=== PATIENT | female | born 1975 | race Hispanic/Latino ===

== ENCOUNTER 2024-11-22 09:04 | Emergency (ER) | payer OTHER ==
[~2024-11-22] VITALS: Ht 157.5 cm; Wt 88.5 kg
[2024-11-22] MEDS ORDERED: SODIUM CHLORIDE 0.9% 1000ML 1,000 ML IV SCH (09:15)
[2024-11-22 09:50] LABS: BASOPHILS % 0.4 % (0.0-1.0); EOSINOPHILS % 0.1 % (0.0-6.0); HEMATOCRIT 37.7 % (34.2-44.1); HEMOGLOBIN 12.5 g/dL (12.0-16.0); LYMPHOCYTES # (AUTO) 1.7 (1.0-3.2); LYMPHOCYTES % 18.8 % (18.0-39.1); MEAN CORPUSCULAR HGB CONC 33.2 g/dL (31-35); MEAN CORPUSCULAR VOLUME 87.5 fL (81-99); MONOCYTES # (AUTO) 0.4 (0.2-0.8); MONOCYTES % 4.1 % (4.4-11.3); NEUTROPHILS # (AUTO) 6.9 (2.1-6.9); PLATELET COUNT 348 x10e3/uL (140-360); RED BLOOD COUNT 4.31 x10e6/uL (3.6-5.1); RED CELL DISTRIBUTION WIDTH 12.5 % (11.7-14.4); WHITE BLOOD COUNT 9.08 x10e3/uL (4.8-10.8)
[2024-11-22 10:15] LABS: ALBUMIN 4.1 g/dL (3.5-5.0); ALBUMIN/GLOBULIN RATIO 1.1 (0.8-2.0); ANION GAP 13.6 mmol/L (8-16); BILIRUBIN,TOTAL 0.2 mg/dL (0.2-1.2); CALCIUM 10.1 mg/dL (8.4-10.2); CREATININE, SERUM 0.85 mg/dL (0.57-1.11); POTASSIUM 3.6 mmol/L (3.5-5.1); TOTAL PROTEIN 7.9 g/dL (6.5-8.1)
[2024-11-22] MEDS: DICYCLOMINE HCL 20 MG/2 ML VIAL IM ONE (10:23)
[2024-11-22] MEDS: ONDANSETRON HCL INJ 2MG/ML 2ML 2 MG/ML VIAL IV STA (10:23)
[2024-11-22] MEDS ORDERED: CARAFATE1 GM PO (11:07)
[2024-11-22] MEDS: MAGNESIUM/ALUMINUM/SIMETHICONE 30 ML UDC PO ONE (11:15)
[2024-11-22] MEDS: BELLADONNA ALK/PHENOBARBITAL 5 ML UDC PO STA (11:15)
[2024-11-22] MEDS: LIDOCAINE VISC 2% SOLN 15 ML UDC PO ONE (11:15)
[2024-11-22 12:34] VITALS: PULSE 58; RESP 18; TEMP 98.2; O2SAT 100
== END 2024-11-22 12:35 | disposition home or self-care (01) ==
LOC: ER 09:10
DX: R10.11 Right upper quadrant pain (principal); K29.70 Gastritis, unspecified, without bleeding; E11.65 Type 2 diabetes mellitus with hyperglycemia
CPT/HCPCS: 36415; 76705; 80053; 83690; 84484; 85025; 93005; 99284; J0500; J2405; J2470; J7030